=== PATIENT | male | born 1935 | race Caucasian/White ===

== ENCOUNTER 2016-07-28 17:02 | Emergency (ER) | payer MEDICARE ==
[2016-07-28] MEDS ORDERED: NORMAL SALINE 1000 ML 1,000 ML IV ONE (17:54)
[2016-07-28 18:04] LABS: ABSOLUTE EOSINOPHILS # (AUTO) 0.1 10^3/uL (0.0-0.6); ABSOLUTE LYMPHOCYTES (AUTO) 2.6 10^3/uL (0.5-4.7); ABSOLUTE MONOCYTES (AUTO) 0.5 10^3/uL (0.1-1.4); ABSOLUTE NEUT (AUTO) 3.1 10^3/uL (1.7-8.2); BASOPHILS % (AUTO) 0.6 % (0-2); EOSINOPHILS % (AUTO) 1.9 % (0-6); HEMOGLOBIN 12.9 g/dL (13.5-17.0); HGB HCT DIFFERENCE 1.7; LYMPHOCYTES % (AUTO) 41.2 % (13-45); MEAN CORPUSCULAR HEMOGLOBIN 31.2 pg (27.0-33.4); MEAN CORPUSCULAR HGB CONC 34.8 g/dL (32.0-36.0); MEAN CORPUSCULAR VOLUME 90 fl (80-97); MONOCYTES % (AUTO) 8.1 % (3-13); RED BLOOD COUNT 4.13 10^6/uL (4.35-5.55); RED CELL DISTRIBUTION WIDTH 14.2 % (11.5-14.0); SEGMENTED NEUTROPHILS % (AUTO) 48.2 % (42-78); WHITE BLOOD COUNT 6.3 10^3/uL (4.0-10.5)
--- NOTE | 2016-07-28 18:05 | ER Document Report ---
ED Cardiac - General Chief Complaint: Palpitations Stated Complaint: SHORTNESS OF BREATH Notes: The patient is an 80-year-old male, past medical history pacemaker for atrial flutter, presents with palpitations and mild shortness of breath since yesterday. He said that his heart rate is elevated. He saw his supervisor correspondence section, Dr. Trujillo, last week and his Sotolol and Diltiazem were stopped at that time. He denies any chest pain, fevers, nausea, vomiting, headache, rash, numbness, tingling or back pain. TRAVEL OUTSIDE OF THE [place] IN LAST 30 DAYS: No - Related Data Allergies/Adverse Reactions: Iodinated Contrast Media - Oral and [IV Dye, Iodine Containing] Allergy ( Verified 07/28/16 19:17) hot around ears and groin, n/v Past Medical History - General Information source: Patient - Social History Smoking Status: Unknown if Ever Smoked Family History: Other Patient has suicidal ideation: No Patient has homicidal ideation: No - Past Medical History Cardiac Medical History: Reports: Hx Atrial Fibrillation, Hx Hypercholesterolemia, Hx Hypertension Denies: Hx Congestive Heart Failure, Hx Coronary Artery Disease, Hx Heart Attack, Hx Peripheral Vascular Disease, Hx Heart Murmur Pulmonary Medical History: Reports: Hx Bronchitis, Hx Pneumonia Denies: Hx Asthma, Hx COPD, Hx Tuberculosis Neurological Medical History: Denies: Hx Cerebrovascular Accident, Hx Seizures Endocrine Medical History: Reports: Hx Diabetes Mellitus Type 2. Denies: Hx Graves' Disease, Hx Hyperthyroidism, Hx Hypothyroidism Renal/ Medical History: Denies: Hx Peritoneal Dialysis GI Medical History: Reports: Hx Gastroesophageal Reflux Disease Musculoskeltal Medical History: Reports Hx Arthritis, Denies Hx Fibromyalgia, Denies Hx Muscular Dystrophy Traumatic Medical History: Denies: Hx Fractures Past Surgical History: Reports: Hx Appendectomy, Hx Cardiac Catheterization - 2009, Hx Cardiac Surgery - pacemaker, Hx Pacemaker, Hx Tonsillectomy. Denies: Hx Bowel Surgery, Hx Cholecystectomy, Hx Coronary Artery Bypass Graft, Hx Gastric Bypass Surgery, Hx Herniorrhaphy - Immunizations Hx Diphtheria, Pertussis, Tetanus Vaccination: Yes Hx Pneumococcal Vaccination: 06/12/11 Review of Systems - Review of Systems Notes: REVIEW OF SYSTEMS: CONSTITUTIONAL: -fevers, -chills EENT: -eye pain, -difficulty swallowing, -nasal congestion CARDIOVASCULAR: -chest pain, +palpitations, -syncope. RESPIRATORY: -cough, +SOB GASTROINTESTINAL: -abdominal pain, -nausea, -vomiting, -diarrhea GENITOURINARY: -dysuria, -hematuria MUSCULOSKELETAL: -back pain, -neck pain SKIN: -rash or skin lesions. HEMATOLOGIC: -easy bruising or bleeding. LYMPHATIC: -swollen, enlarged glands. NEUROLOGICAL: -altered mental status or loss of consciousness, -headache, - neurologic symptoms PSYCHIATRIC: -anxiety, -depression. ALL OTHER SYSTEMS REVIEWED AND NEGATIVE. Physical Exam - Vital signs Vitals: Temp Pulse Resp BP Pulse Ox 98.2 F 139 H 16 164/110 H 99 07/28/16 17:29 07/28/16 17:29 07/28/16 17:29 07/28/16 17:29 07/28/16 17:29 - Notes Notes: PHYSICAL EXAMINATION: GENERAL: Well-appearing, well-nourished and in no acute distress. HEAD: Atraumatic, normocephalic. EYES: Pupils equal round and reactive to light, extraocular movements intact, sclera anicteric, conjunctiva are normal. ENT: nares patent, oropharynx clear without exudates. Moist mucous membranes. NECK: Normal range of motion, supple without lymphadenopathy LUNGS: Breath sounds clear to auscultation bilaterally and equal. No wheezes rales or rhonchi. HEART: Tachycardia, regular rhythm without murmurs ABDOMEN: Soft, nontender, normoactive bowel sounds. No guarding, no rebound. No masses appreciated. EXTREMITIES: Normal range of motion, no pitting or edema. No cyanosis. NEUROLOGICAL: Cranial nerves grossly intact. Normal speech, normal gait. Normal sensory, motor, and reflex exams. PSYCH: Normal mood, normal affect. SKIN: Warm, Dry, normal turgor, no rashes or lesions noted. Course - Re-evaluation Re-evalutation: Patient's pacemaker interrogated and it reveals multiple episodes of atrial flutter over the past several months. While in the emergency room, his heart rate improved to the 90s to low 100s without any intervention other than IV fluids. No signs of infection. Pt's diltiazem and sotolol were stopped last week by his supervisor correspondence section. 07/28/16 19:[address] Manjinder Galicia ([facility] [employer] front office assistant for Dr. Trujillo) and he recommends restarting the patient's diltiazem and sotalol and following up as an outpatient with Dr. Trujillo. Patient given his home diltiazem and sotalol while in the emergency room. Offered patient admission for further evaluation and treatment, but since he feels well, he would like to go home and follow-up as an outpatient with his supervisor correspondence section. Patient and are comfortable with plan. Given strict return precautions and they understand. He is in no respiratory distress. His heart rate remains in low 90's to low 100's. - Vital Signs Vital signs: Temp Pulse Resp BP Pulse Ox 98.2 F 139 H 25 H 139/96 H 97 07/28/16 19:01 07/28/16 17:29 07/28/16 19:01 07/28/16 19:01 07/28/16 19:01 - Laboratory Result Diagrams: 07/28/16 17:45 07/28/16 17:45 Laboratory results interpreted by me: 07/28/16 07/28/16 07/28/16 17:45 17:45 17:45 RBC 4.13 L Hgb 12.9 L Hct 37.0 L RDW 14.2 H Sodium 146.7 H Chloride 108 H BUN 23 H Glucose 125 H NT-Pro-B Natriuret Pep 1290 H - Diagnostic Test Radiology reviewed: Image reviewed, Reports reviewed Radiology results interpreted by me: CXR: NAD - EKG Interpretation by Me EKG shows normal: [place], Intervals, QRS Complexes Rate: Tachycardia When compared to previous EKG there are: Changes noted - Tachycardia, similar ST segments Discharge - Discharge Clinical Impression: Atrial flutter Qualifiers: Atrial flutter type: unspecified Qualified Code(s): I48.92 - Unspecified atrial flutter Condition: Good Disposition: HOME, SELF-CARE Additional Instructions: Take your home dose of diltiazem and sotalol because her heart rate was in the 140s today. If your heart rate is below 60, do not take the diltiazem or sotalol. You must follow-up with your supervisor correspondence section this week to recheck her symptoms. Return immediately to emergency room if you notice any chest pain, shortness of breath or any other concerns. Palpitations (Irregular/Rapid Heartrate) Irregular or rapid heartbeat is called "palpitation." To diagnose the cause of palpitation, we have to "catch it in the act" with an EKG. Sinus Tachycardia: This is a rapid (but NORMAL) rhythm that can be due to fever, pain, anxiety, lack of sleep, over-exertion, or drugs. Cold medications, caffeine, and diet pills are particularly likely to cause tachycardia. Usually , all that's required is rest, reassurance, and avoiding caffeine, alcohol, nicotine, and unnecessary medicines. Paroxysmal Atrial Tachycardia (PAT): This abnormally rapid heartbeat is caused by a "short circuit" in the electrical system of the heart. It is not dangerous, unless other heart disease is present. These attacks of PAT may occur occasionally for years. Medication is available for treatment. Paroxysmal Atrial Fibrillation or Atrial Flutter: This is irregular electrical activity in the upper heart chamber. These abnormal rhythms often occur with valve disease or in hearts damaged by hardening of the arteries. These rhythms usually require further testing, for example a cardiac echo. Premature Beats: Extra beats occur more commonly after caffeine, nicotine , alcohol, cold pills, diet pills. Emotional stress or fatigue also provoke them. Extra beats are only dangerous when heart disease is present. They usually need no treatment. If they're frequent, or if evidence of heart disease develops, medication can be given to suppress them. If we were unable to "catch" the palpitations on EKG, you should try to get an EKG immediately if the symptoms begin again. Contact the physician at once if you develop persistent lightheadedness, shortness of breath, chest pain , or swelling of the ankles. Referrals: URI TRUJILLO MD [[facility]ERCE] - Follow up as needed
[2016-07-28 18:20] LABS: PROTHROMBIN TIME 14.4 SEC (11.4-15.4)
[2016-07-28 18:21] LABS: PARTIAL THROMBOPLASTIN TIME 28.7 SEC (23.5-35.8)
[2016-07-28 18:25] LABS: ALANINE AMINOTRANSFERASE 27 U/L (21-72); ALBUMIN 4.7 g/dL (3.5-5.0); ALKALINE PHOSPHATASE 39 U/L (38-126); ANION GAP 15 (5-19); ASPARTATE AMINO TRANSFERASE 35 U/L (17-59); BILIRUBIN,DIRECT 0.2 mg/dL (0.0-0.4); BILIRUBIN,TOTAL 0.4 mg/dL (0.2-1.3); BLOOD UREA NITROGEN 23 mg/dL (7-20); CALCIUM 9.8 mg/dL (8.4-10.2); CARBON DIOXIDE 24 mmol/L (22-30); CHLORIDE 108 mmol/L (98-107); CREATINE KINASE 96 U/L (55-170); CREATININE RESULT 1.13 mg/dL (0.52-1.25); GLUCOSE 125 mg/dL (75-110); POTASSIUM 4.1 mmol/L (3.6-5.0); SODIUM 146.7 mmol/L (137-145); TOTAL PROTEIN 7.7 g/dL (6.3-8.2)
[2016-07-28 18:37] LABS: TROPONIN I 0.014 ng/mL
--- NOTE | 2016-07-28 19:37 | EKG REPORT ---
SEVERITY:- ABNORMAL ECG - SINUS OR ECTOPIC ATRIAL TACHYCARDIA BORDERLINE LEFT AXIS DEVIATION CONSIDER POSTERIOR INFARCT REPOLARIZATION ABNORMALITY, PROB RATE RELATED : Confirmed by: Afshan Saeed MD 28-Jul-2016 19:36:50
[2016-07-28 20:34] VITALS: BP 145/88
== END 2016-07-28 20:35 | disposition home or self-care (01) ==
LOC: ER 17:02
DX: I48.92 Unspecified atrial flutter (principal); R06.02 Shortness of breath; R00.0 Tachycardia, unspecified; I10 Essential (primary) hypertension; E11.9 Type 2 diabetes mellitus without complications; Z91.041 Radiographic dye allergy status; Z95.0 Presence of cardiac pacemaker
CPT/HCPCS: 93005; 99285; 36415; 82550; 85025; 85610; 85730; 80076; 80048; 84484; 83880; 71010; 93010; J7030

== ENCOUNTER → 2017-07-08 | Outpatient (CLI) | payer MEDICARE ==
--- NOTE | 2017-07-08 15:46 | RADIOLOGY REPORT (SQ) ---
EXAM DESCRIPTION: U/S RETROPERITON (RENAL/AORTA) COMPLETED DATE/TIME: 07/08/2017 2:47 pm REASON FOR STUDY: HEMATURIA R31.9 HEMATURIA, UNSPECIFIED COMPARISON: None. TECHNIQUE: Dynamic and static grayscale images acquired of the kidneys and bladder and recorded on P ACS. Additional selected color Doppler and spectral images recorded. LIMITATIONS: None. FINDINGS: RIGHT KIDNEY: Normal size. Normal echogenicity. No solid or suspicious masses. No hydronep hrosis. No calcifications. LEFT KIDNEY: Normal size. Normal echogenicity. 1 cm cyst. No solid or suspicious masses. No hydron ephrosis. No calcifications. BLADDER: No masses. OTHER FINDINGS: No other significant finding. IMPRESSION: 1 CM CYST IN THE LEFT KIDNEY. OTHERWISE UNREMARKABLE RENAL AND BLADDER ULTRASOUND. TECHNICAL DOCUMENTATION: JOB ID: [id number] [employer]- All Rights Reserved Reading location - IP/workstation name: [email or web address]
== END ==
LOC: RAD 13:45
PROVIDERS: ATTEND Family Medicine
DX: R31.9 Hematuria, unspecified (principal); N28.1 Cyst of kidney, acquired
CPT/HCPCS: 76770

== ENCOUNTER → 2017-09-22 | Outpatient (CLI) | payer MEDICARE | LOC: HHS 09:09 | DX: Z12.83 Encounter for screening for malignant neoplasm of skin (principal) ==

== ENCOUNTER 2018-03-31 07:00 | Day surgery (SDC) | payer OTHER, MEDICARE ==
[~2018-03-31 07:00] MED LIST: KETOROLAC TROMETHAMINE 0.45% 4 DROP/0.4 ML DROPERETTE OD PRN
[2018-03-31] MEDS ORDERED: MIDAZOLAM 2 MG/2 ML INJ ONE (07:22)
[2018-03-31] MEDS ORDERED: EPINEPHRINE INJ/PF 1 MG/1 ML AMPULE ONE (07:25)
[2018-03-31] MEDS ORDERED: LIDOCAINE 1% INJ-PF (10 MG/ML) 30 ML SDV ONE (07:25)
[2018-03-31] MEDS ORDERED: CHONDR SU A NA/HYALUR INTRAOC KIT (SURGICARE) ONE (07:26)
[2018-03-31] MEDS ORDERED: LIDOCAINE 1%/PHENYLEPHRINE 1.5% 1 ML VIAL ONE (07:45)
[2018-03-31] MEDS: BESIFLOXACIN HCL 0.6% OPH SUSP 5 ML BOTTLE OD PRN ×4 (07:55→08:48)
[2018-03-31] MEDS: TETRACAINE HCL 0.5% OPH SOLN 4 ML OD PRN ×3 (07:55→08:28)
[2018-03-31] MEDS: CYCLOPENTOLATE 0.2%/PHENYLEPHRINE 1% OPH SOLN 2 ML OD PRN ×3 (07:55→08:15)
[2018-03-31] MEDS: TROPICAMIDE 1% OPH SOLN 3 ML OD PRN ×3 (07:55→08:15)
--- NOTE | 2018-04-01 18:57 | [facility] OPERATIVE REPORT E ---
[facility] NAME: RSOITA GORVES AGE: 82Y DATE OF SURGERY: 03/31/2018 ROOM: PREOPERATIVE DIAGNOSES: 1. CATARACT, RIGHT EYE. 2. PUPIL MIOSIS, RIGHT EYE. POSTOPERATIVE DIAGNOSES: 1. CATARACT, RIGHT EYE. 2. PUPIL MIOSIS, RIGHT EYE. OPERATION: Complex cataract extraction with the use of a Malyugin ring due to pupillary miosis where the pupil measured to be less than 4 mm. SURGEON: AIDAN RUBIO M.D. ANESTHESIA: TOPICAL. COMPLICATIONS: None. ESTIMATED BLOOD LOSS: None. PROCEDURE: After obtaining appropriate consent, the patient right eye was prepped and draped in sterile fashion as well as the surgeon in a sterile manner, and the cataract surgery was started. First, the paracentesis blade was used to make a small side-port incision. Viscoelastic was used to inflate the anterior chamber. Next a 2.4 mm incision was made using a 2.4 mm keratome. At this point, the pupil was less than 4.5 mm and was very miotic. In order to complete the capsulorhexis, a Malyugin ring was inserted and found to be in excellent position to help stabilize the pupil. Following this, a continuous capsulorhexis was made using a cystitome and Utrata forceps. Following this, hydrodissection was carried out to make the lens fully loose and mobile, and it was rotated 90 degrees. Following this, a divide and conquer technique was used to phacoemulsify the lens with a CDE of approximately 10.48. The remaining cortex was removed with irrigation/aspiration. Provisc was instilled into the capsular bag to inflate the bag. A SN60WF lens of 18.0 diopters was placed. The remaining viscoelastic material was removed with irrigation/aspiration. After this the Malyugin ring was removed. Following this, the incision was found to be watertight. Besivance was instilled into the eye and a protective shield was placed over the eye. The patient returned to the postoperative recovery in stable condition. This was a complex case due to the fact that the Malyugin ring was used due to poor pupillary dilation of less than or equal to 4 mm. Prior to making the capsulorrhexis, a Malyugin ring was inserted due to poor pupillary dilation. This was removed at the end of the case. DICTATING PHYSICIAN: AIDAN RUBIO M.D. [id number] PHY#: [id number] ID: [id number] JOB#: [id number] ACCT: [id number] cc:AIDAN RUBIO M.D. >
--- NOTE | 2018-04-01 19:02 | [facility] DISCHARGE SUMMARY E ---
[facility] Discharge Summary NAME: ROSITA GROVES AGE: 82Y ADMITTED: 03/31/2018 DISCHARGED: 03/31/2018 FINAL DIAGNOSES: 1. Cataract, right eye. 2. Pupil miosis. HOSPITAL COURSE: This is an 82-year-old male who underwent cataract extraction, complex, with the use of Malyugin ring due to poor pupillary dilation. Patient underwent surgery because he was having increased glare with headlights at night and difficulty seeing words on the television. DISCHARGE INSTRUCTIONS: He should be on a regular diet. No bending at his waist, no heavy lifting. He should use Pred Forte, ketorolac and Vigamox at 3:00 p.m. and 8:00 p.m. Sleep with a rigid shield. I will see him for a 1-day postoperative tomorrow. DICTATING PHYSICIAN: AIDAN RUBIO M.D. [id number] PHY#: [id number] ID: [id number] JOB#: [id number] ACCT: [id number] cc:AIDAN RUBIO M.D. >
== END 2018-03-31 09:39 | disposition home or self-care (01) ==
LOC: SC 07:00
PROVIDERS: ATTEND Internal Medicine
DX: H25.13 Age-related nuclear cataract, bilateral (principal); H57.03 Miosis; E11.9 Type 2 diabetes mellitus without complications; I10 Essential (primary) hypertension; E78.00 Pure hypercholesterolemia, unspecified; R01.1 Cardiac murmur, unspecified; D64.9 Anemia, unspecified; I49.9 Cardiac arrhythmia, unspecified; Z79.899 Other long term (current) drug therapy; Z87.891 Personal history of nicotine dependence; Z79.84 Long term (current) use of oral hypoglycemic drugs; Z79.82 Long term (current) use of aspirin; Z91.041 Radiographic dye allergy status; Z79.01 Long term (current) use of anticoagulants; Z95.0 Presence of cardiac pacemaker
CPT/HCPCS: 66982; 82962; V2632; J2250; J3490 ×2; J0171; J2370; 142

== ENCOUNTER 2018-04-28 07:38 | Day surgery (SDC) | payer OTHER, MEDICARE ==
[~2018-04-28 07:38] MED LIST changes: -KETOROLAC TROMETHAMINE 0.45% 4 DROP/0.4 ML DROPERETTE OD PRN; +KETOROLAC TROMETHAMINE 0.45% 4 DROP/0.4 ML DROPERETTE OS PRN
[2018-04-28] MEDS ORDERED: EPINEPHRINE INJ/PF 1 MG/1 ML AMPULE ONE (07:53)
[2018-04-28] MEDS ORDERED: LIDOCAINE 1% INJ-PF (10 MG/ML) 30 ML SDV ONE (07:53)
[2018-04-28] MEDS ORDERED: CHONDR SU A NA/HYALUR INTRAOC KIT (SURGICARE) ONE (07:54)
[2018-04-28] MEDS ORDERED: LIDOCAINE 1%/PHENYLEPHRINE 1.5% 1 ML VIAL ONE (07:55)
[2018-04-28] MEDS ORDERED: MIDAZOLAM 2 MG/2 ML INJ ONE (08:02)
[2018-04-28] MEDS: TETRACAINE HCL 0.5% OPH SOLN 4 ML OS PRN ×3 (08:40→09:18)
[2018-04-28] MEDS: CYCLOPENTOLATE 0.2%/PHENYLEPHRINE 1% OPH SOLN 2 ML OS PRN ×3 (08:40→09:00)
[2018-04-28] MEDS: TROPICAMIDE 1% OPH SOLN 3 ML OS PRN ×3 (08:40→09:00)
[2018-04-28] MEDS: BESIFLOXACIN HCL 0.6% OPH SUSP 5 ML BOTTLE OS PRN ×4 (08:41→09:40)
--- NOTE | 2018-04-28 22:22 | [facility] DISCHARGE SUMMARY E ---
[facility] Discharge Summary NAME: ROSITA GROVES AGE: 82Y ADMITTED: 04/28/2018 DISCHARGED: 04/28/2018 HOSPITAL COURSE: This is an 82-year-old who underwent complex cataract extraction of the left eye with use of a Malyugin ring due to pupil miosis. DIAGNOSES: 1. CATARACT, LEFT EYE. 2. PUPIL MIOSIS OF THE LEFT EYE. He underwent surgery because he was having difficulty with nighttime driving and feeling an imbalance between both eyes. DISCHARGE INSTRUCTIONS: He should be on a regular diet. No bending at his waist, no heavy lifting. He should use his Vigamox, Ketorolac, and Predforte at 3 p.m. and 8 p.m. and sleep with a rigid shield. I will see him for his 1 day postoperative tomorrow. DICTATING PHYSICIAN: AIDAN RUBIO M.D. [id number] PHY#: [id number] ID: [id number] JOB#: [id number] ACCT: [id number] cc:AIADN RUBIO M.D. >
--- NOTE | 2018-04-28 22:22 | [facility] OPERATIVE REPORT E ---
[facility] Operative Report NAME: ROSITA GROVES AGE: 82Y DATE OF SURGERY: 04/28/2018 ROOM: PREOPERATIVE DIAGNOSES: 1. CATARACT LEFT EYE. 2. PUPIL MIOSIS OF THE LEFT EYE LESS THAN 4 MM. POSTOPERATIVE DIAGNOSES: 1. CATARACT LEFT EYE. 2. PUPIL MIOSIS OF THE LEFT EYE LESS THAN 4 MM. OPERATION: Complex cataract extraction with the use of a Malyugin ring due to poor pupillary dilation. SURGEON: AIDAN RUBIO M.D. ANESTHESIA: TOPICAL. COMPLICATIONS: None. ESTIMATED BLOOD LOSS: None. PROCEDURE: After obtaining appropriate consent, the patient left eye was prepped and draped in sterile fashion as well as the surgeon in a sterile manner, and the cataract surgery was started. First, the paracentesis blade was used to make a small side-port incision. Viscoelastic was used to inflate the anterior chamber. Next a 2.4 mm incision was made using a 2.4 mm keratome. At this point, the pupil was less than 4.5 mm and was very miotic. In order to complete the capsulorhexis, a Malyugin ring was inserted and found to be in excellent position to help stabilize the pupil. Following this, a continuous capsulorhexis was made using a cystitome and Utrata forceps. Following this, hydrodissection was carried out to make the lens fully loose and mobile, and it was rotated 90 degrees. Following this, a divide and conquer technique was used to phacoemulsify the lens with a CDE of 12.98. The remaining cortex was removed with irrigation/aspiration. Provisc was instilled into the capsular bag to inflate the bag. A SN60WF lens of 18.5 diopters was placed. The remaining viscoelastic material was removed with irrigation/aspiration. After this the Malyugin ring was removed. Following this, the incision was found to be watertight. Besivance was instilled into the eye and a protective shield was placed over the eye. The patient returned to the postoperative recovery in stable condition. This was a complex case due to the fact that the Malyugin ring was used due to poor pupillary dilation of less than or equal to 4 mm. Prior to making the capsulorhexis a Malyugin ring was inserted due to poor pupillary dilation. This was removed at the end of the case. DICTATING PHYSICIAN: AIDAN RUBIO M.D. [id number] PHY#: [id number] ID: [id number] JOB#: [id number] ACCT: [id number] cc:AIDAN RUBIO M.D. >
== END 2018-04-28 10:21 | disposition home or self-care (01) ==
LOC: SC 07:38
PROVIDERS: ATTEND Internal Medicine
DX: H25.12 Age-related nuclear cataract, left eye (principal); H57.03 Miosis; Z96.1 Presence of intraocular lens; I10 Essential (primary) hypertension; I48.91 Unspecified atrial fibrillation; E11.9 Type 2 diabetes mellitus without complications; D64.9 Anemia, unspecified; K21.9 Gastro-esophageal reflux disease without esophagitis; Z79.84 Long term (current) use of oral hypoglycemic drugs; Z79.899 Other long term (current) drug therapy; Z79.01 Long term (current) use of anticoagulants; Z79.82 Long term (current) use of aspirin
CPT/HCPCS: 66982; 82962; V2632; J2250; J3490 ×2; J0171; J2370; 142

== ENCOUNTER 2018-08-17 08:11 | Day surgery (SDC) | payer MEDICARE, OTHER ==
[~2018-08-17 08:11] MED LIST changes: +DIPHENHYDRAMINE HCL 50 MG/ML VIAL ONE; +EPINEPHRINE INJ 1 MG/10 ML DISP.SYRIN ONE; +FENTANYL CITRATE INJ/PF 100 MCG/2 ML AMPUL ONE; +FLUMAZENIL INJ 0.5 MG/5 ML VIAL ONE; +GLUCAGON,HUMAN RECOMB 1 MG INJ ONE; -KETOROLAC TROMETHAMINE 0.45% 4 DROP/0.4 ML DROPERETTE OS PRN; +NALOXONE HCL INJ/PF 0.4 MG/1 ML SDV ONE; +ONDANSETRON HCL INJ/PF 4 MG/2 ML SDV ONE
[2018-08-17] MEDS: MIDAZOLAM 2 MG/2 ML INJ ONE ×2 (08:21→08:25)
--- NOTE | 2018-08-17 08:35 | Operative Report ---
Operative Report DATE OF SURGERY: 08/17/18 Operative Report: The risks benefits and alternatives of the procedure explained to the patient in detail and informed consent is obtained.A GIF Olympus video scope was inserted into the patient's mouth and hypopharynx, the esophagus is identified intubated and insufflated, the scope was then advanced through the esophagus stomach and duodenum, retroflexion maneuver is done, the esophagus stomach and first and second portions of the duodenum examined. PREOPERATIVE DIAGNOSIS: Epigastric pain rule out peptic ulcer disease. Patient had a previous ENT evaluation POSTOPERATIVE DIAGNOSIS: Gastritis status post biopsy for Helicobacter pylori. Hiatal hernia. Schatzki's ring status post breakage. Esophagitis versus Brizuela's sent for biopsy OPERATION: EGD with biopsy SURGEON: RENETTA STORY ANESTHESIA: Moderate Sedation - 3 mg of Versed, 4 mg of Zofran TISSUE REMOVED OR ALTERED: As noted above. COMPLICATIONS: None. ESTIMATED BLOOD LOSS: None. INTRAOPERATIVE FINDINGS: As noted above. PROCEDURE: Patient tolerated the procedure well. No immediate postprocedure complications are noted. Patient discharged in good condition. Discharge date 08/17/2018. Discharge diet: Regular. Discharge activity: Regular. 2 to 3-week follow-up to discuss findings. Patient is instructed call the office or proceed to the emergency room should there be any further questions. Wait on the pathology.
[2018-08-17 09:39] VITALS: BP 125/67
== END 2018-08-17 09:43 | disposition home or self-care (01) ==
LOC: END 08:11
PROVIDERS: ATTEND Internal Medicine Gastroenterology
DX: K29.50 Unspecified chronic gastritis without bleeding (principal); K44.9 Diaphragmatic hernia without obstruction or gangrene; K22.2 Esophageal obstruction; E11.9 Type 2 diabetes mellitus without complications; E78.5 Hyperlipidemia, unspecified; I48.91 Unspecified atrial fibrillation; Z95.0 Presence of cardiac pacemaker; Z79.84 Long term (current) use of oral hypoglycemic drugs; Z79.899 Other long term (current) drug therapy; Z79.01 Long term (current) use of anticoagulants; Z79.82 Long term (current) use of aspirin
CPT/HCPCS: 43239; 82962; 88305 ×2; J2250; J2405; J0171; J1200; J1610; J2310; J3010; J3490

== ENCOUNTER 2018-11-12 10:47 | Emergency (ER) | payer MEDICARE ==
--- NOTE | 2018-11-12 11:56 | ER Document Report ---
ED Medical Screen (RME) - General Chief Complaint: Dizziness Stated Complaint: DIZZINESS,HEADACHE Time Seen by Provider: 11/12/18 11:41 Primary Care Provider: GUADALUPE GRIFFIN MD [Primary Care Provider] - Follow up as needed Mode of Arrival: Ambulatory Information source: Patient Notes: This 83-year-old male presents to the emergency department with multiple complaints. He reports he has been dizzy with shortness of breath with a sore throat for over 6 months. He is here mainly today for the dizziness. He reports sometimes he becomes so dizziness he has to hang onto the soriano. He reports 90% of the time he is dizzy. He reports he has been evaluated by multiple physicians to include GI and ENT. He has had a EGD done. Nobody has addressed his sore throat. His medications have been changed around they may be responsible for his dizziness. Patient does have a history of diabetes pacemaker. No recent symptoms such as fever vomiting nausea diarrhea. Is speaking in a clear voice no obvious neuro deficits. Reports he swallows okay but his throat hurts. I have greeted and performed a rapid initial assessment of this patient. A comprehensive ED assessment and evaluation of the patient, analysis of test results and completion of the medical decision making process will be conducted by additional ED providers. Dictation of this chart was performed using voice recognition software; therefore, there may be some unintended grammatical errors. TRAVEL OUTSIDE OF THE [place] IN LAST 30 DAYS: No - Related Data Allergies/Adverse Reactions: No Known Allergies Allergy (Verified 08/16/18 14:44) Past Medical History - Past Medical History Cardiac Medical History: Reports: Hx Atrial Fibrillation, Hx Hypercholesterolemia, Hx Hypertension Denies: Hx Congestive Heart Failure, Hx Coronary Artery Disease, Hx Heart A ttack, Hx Peripheral Vascular Disease, Hx Heart Murmur Pulmonary Medical History: Reports: Hx Pneumonia Denies: Hx Asthma, Hx Bronchitis, Hx COPD, Hx Tuberculosis Neurological Medical History: Denies: Hx Cerebrovascular Accident, Hx Seizures Endocrine Medical History: Reports: Hx Diabetes Mellitus Type 2. Denies: Hx Graves' Disease, Hx Hyperthyroidism, Hx Hypothyroidism Renal/ Medical History: Denies: Hx Peritoneal Dialysis GI Medical History: Reports: Hx Gastroesophageal Reflux Disease. Denies: Hx Hepatitis, Hx Hiatal Hernia, Hx Ulcer Musculoskeltal Medical History: Reports Hx Arthritis, Denies Hx Fibromyalgia, Denies Hx Muscular Dystrophy, Denies Hx Systemic Lupus Erythematosus Traumatic Medical History: Denies: Hx Fractures Infectious Medical History: Denies: Hx Hepatitis Past Surgical History: Reports: Hx Appendectomy, Hx Cardiac Catheterization - 2010, Hx Cardiac Surgery - pacemaker, Hx Pacemaker, Hx Tonsillectomy. Denies: Hx Bowel Surgery, Hx Cholecystectomy, Hx Coronary Artery Bypass Graft, Hx Gastric Bypass Surgery, Hx Herniorrhaphy, Hx Open Heart Surgery - Immunizations Hx Diphtheria, Pertussis, Tetanus Vaccination: Yes Influenza Administration Date for 01/2017 - 06/2017 Season: 01/10/18 Physical Exam - Vital signs Vitals: Temp Pulse Resp BP Pulse Ox 98.3 F 70 18 141/55 H 97 11/12/18 10:54 11/12/18 10:54 11/12/18 10:54 11/12/18 10:54 11/12/18 10:54 Course - Vital Signs Vital signs: Temp Pulse Resp BP Pulse Ox 98.3 F 70 18 141/55 H 97 11/12/18 10:54 11/12/18 10:54 11/12/18 10:54 11/12/18 10:54 11/12/18 10:54 Doctor's Discharge - Discharge Referrals: GUADALUPE GRIFFIN MD [Primary Care Provider] - Follow up as needed
[2018-11-12 12:59] LABS: ABSOLUTE EOSINOPHILS # (AUTO) 0.1 10^3/uL (0.0-0.6); ABSOLUTE MONOCYTES (AUTO) 0.3 10^3/uL (0.1-1.4); ABSOLUTE NEUT (AUTO) 2.6 10^3/uL (1.7-8.2); BASOPHILS % (AUTO) 0.6 % (0-2); EOSINOPHILS % (AUTO) 1.4 % (0-6); HEMATOCRIT 38.6 % (37.9-51.0); HEMOGLOBIN 13.1 g/dL (13.5-17.0); MEAN CORPUSCULAR HEMOGLOBIN 31.7 pg (27.0-33.4); MEAN CORPUSCULAR HGB CONC 33.8 g/dL (32.0-36.0); MEAN CORPUSCULAR VOLUME 94 fl (80-97); MONOCYTES % (AUTO) 6.7 % (3-13); PLATELET COUNT 221 10^3/uL (150-450); RED BLOOD COUNT 4.12 10^6/uL (4.35-5.55); RED CELL DISTRIBUTION WIDTH 13.1 % (11.5-14.0); SEGMENTED NEUTROPHILS % (AUTO) 51.3 % (42-78); TOTAL CELLS COUNTED % (AUTO) 100 %; WHITE BLOOD COUNT 5.1 10^3/uL (4.0-10.5)
[2018-11-12 13:16] LABS: ALBUMIN 4.4 g/dL (3.5-5.0); ALKALINE PHOSPHATASE 42 U/L (38-126); ANION GAP 10 (5-19); ASPARTATE AMINO TRANSFERASE 46 U/L (17-59); BILIRUBIN,DIRECT 0.3 mg/dL (0.0-0.4); BILIRUBIN,TOTAL 0.6 mg/dL (0.2-1.3); BLOOD UREA NITROGEN 26 mg/dL (7-20); CALCIUM 9.4 mg/dL (8.4-10.2); CARBON DIOXIDE 26 mmol/L (22-30); CHLORIDE 104 mmol/L (98-107); CREATINE KINASE 51 U/L (55-170); GLUCOSE 278 mg/dL (75-110); POTASSIUM 4.6 mmol/L (3.6-5.0); TOTAL PROTEIN 7.4 g/dL (6.3-8.2)
[2018-11-12 13:34] LABS: APPEARANCE,URINE CLEAR; BILIRUBIN,URINE NEGATIVE (NEGATIVE); COLOR,URINE YELLOW; GLUCOSE, URINE >=500 mg/dL (NEGATIVE); KETONES,URINE NEGATIVE (NEGATIVE); LEUKOCYTE ESTERASE,URINE NEGATIVE (NEGATIVE); NITRITE,URINE NEGATIVE (NEGATIVE); PROTEIN,URINE NEGATIVE (NEGATIVE); URINE SPECIFIC GRAVITY 1.016; UROBILINOGEN,URINE NEGATIVE mg/dL (<2.0)
--- NOTE | 2018-11-12 14:09 | ER Document Report ---
ED General - General Mode of Arrival: Ambulatory TRAVEL OUTSIDE OF THE [place] IN LAST 30 DAYS: No <FITO DE LUNA - Last Filed: 11/12/18 20:13> <KAYLA CASTRO - Last Filed: 11/13/18 06:30> - General Chief Complaint: Dizziness Stated Complaint: DIZZINESS,HEADACHE Time Seen by Provider: 11/12/18 11:41 Primary Care Provider: RILEY VOSS DO [ASSOCIATE] - 11/14/18 - [facility] Notes: 83-year-old male with history of pacemaker, arrhythmia to the emergency department with complaints of dizziness for the past 2 months that has gotten acutely worse in the past 3 to 4 days with associated "sore throat ". He states that he is dizzy every single day and for the most part it would get worse with different positions. However in the past 3 to 4 days his dizziness has been constant and he has had difficulty walking, operating a vehicle, doing his normal daily life activities. He states that when he tries to get up and ambulate he requires the use of a wall to help him stand up and not fall. He states that he has a feeling like he is spinning and when the dizziness gets worse he sees double of people and things. He also reports his vague sore throat for the past 6 months. He states that it feels like something is getting caught and he has phlegm in his throat all the time. States that occasionally he will also have difficulty with swallowing. He states that he will accidentally inhale food particles instead of having them go down his esophagus. He reports that this has become a more frequent thing lately. He denies shortness of breath, chest pain. He denies any urinary complaints. He denies abdominal pain, vomiting. He admits to some nausea. He states that he seen both an ENT and GI specialist for his sore throat but really has not found a reason for it nor has anyone truly addressed his dizziness. He states that he is never had a head CT since the dizziness started. He has a [employer] pacemaker that was implanted in 2011. (FITO DE LUNA) - Related Data Allergies/Adverse Reactions: No Known Allergies Allergy (Verified 08/16/18 14:44) Past Medical History - General Information source: Patient - Social History Smoking Status: Never Smoker Frequency of alcohol use: None Drug Abuse: None Family History: Reviewed & Not Pertinent, Other Patient has suicidal ideation: No Patient has homicidal ideation: No - Past Medical History Cardiac Medical History: Reports: Hx Atrial Fibrillation, Hx Hypercholesterolemia, Hx Hypertension Denies: Hx Congestive Heart Failure, Hx Coronary Artery Disease, Hx Heart Attack, Hx Peripheral Vascular Disease, Hx Heart Murmur Pulmonary Medical History: Reports: Hx Pneumonia Denies: Hx Asthma, Hx Bronchitis, Hx COPD, Hx Tuberculosis Neurological Medical History: Denies: Hx Cerebrovascular Accident, Hx Seizures Endocrine Medical History: Reports: Hx Diabetes Mellitus Type 2. Denies: Hx Graves' Disease, Hx Hyperthyroidism, Hx Hypothyroidism Renal/ Medical History: Denies: Hx Peritoneal Dialysis GI Medical History: Reports: Hx Gastroesophageal Reflux Disease. Denies: Hx Hepatitis, Hx Hiatal Hernia, Hx Ulcer Musculoskeletal Medical History: Reports Hx Arthritis, Denies Hx Fibromyalgia, Denies Hx Muscular Dystrophy, Denies Hx Systemic Lupus Erythematosus Traumatic Medical History: Denies: Hx Fractures Infectious Medical History: Denies: Hx Hepatitis Past Surgical History: Reports: Hx Appendectomy, Hx Cardiac Catheterization - 2010, Hx Cardiac Surgery - pacemaker, Hx Pacemaker, Hx Tonsillectomy. Denies: Hx Bowel Surgery, Hx Cholecystectomy, Hx Coronary Artery Bypass Graft, Hx Gastric Bypass Surgery, Hx Herniorrhaphy, Hx Open Heart Surgery - Immunizations Hx Diphtheria, Pertussis, Tetanus Vaccination: Yes Hx Pneumococcal Vaccination: 06/12/11 <FITO DE LUNA - Last Filed: 11/12/18 20:13> Review of Systems - Review of Systems Constitutional: No symptoms reported. denies: Chills, Fever EENT: See HPI, Throat pain, Difficulty swallowing Cardiovascular: Dizziness. denies: Chest pain, Palpitations, Dyspnea, Syncope, Lightheaded Respiratory: Short of breath. denies: Cough Gastrointestinal: See HPI, Nausea. denies: Abdominal pain, Diarrhea, Vomiting Genitourinary: denies: Frequency, Hematuria, Incontinence Musculoskeletal: No symptoms reported Skin: No symptoms reported Neurological/Psychological: No symptoms reported -: Yes All other systems reviewed and negative <FITO DE LUNA - Last Filed: 11/12/18 20:13> Physical Exam - Vital signs Interpretation: Hypertensive - General General appearance: Appears well, Alert In distress: None - HEENT Head: Normocephalic, Atraumatic Eyes: Normal Pupils: PERRL Ears: Normal External canal: Normal Tympanic membrane: Normal Sinus: Normal Nasal: Normal Mouth/Lips: No: Angioedema, Lesions Mucous membranes: Normal Pharynx: Normal. No: Erythema, Exudate, Peritonsillar abscess, Retropharyngeal abscess, Tonsillar hypertrophy, Uvular edema, Potential airway comprom. Neck: Normal - Respiratory Respiratory status: No respiratory distress Chest status: Nontender Breath sounds: Normal Chest palpation: Normal - Cardiovascular Rhythm: Regular Heart sounds: Normal auscultation Murmur: No - Abdominal Inspection: Normal Distension: No distension Bowel sounds: Normal Tenderness: Nontender Organomegaly: No organomegaly - Extremities General upper extremity: Normal inspection, Nontender General lower extremity: Normal inspection, Nontender - Neurological Neuro grossly intact: Yes Cognition: Normal Orientation: AAOx4 [place] Coma Scale Eye Opening: Spontaneous Ole Coma Scale Verbal: Oriented Ole Coma Scale Motor: Obeys Commands Ole Coma Scale Total: 15 Speech: Normal Cranial nerves: Normal. No: Facial palsy, Forehead sparing, Gaze palsy, Sensory deficit, Tongue deviation Cerebellar coordination: Gait ataxia - She has difficulty ambulating and hold on to the soriano to help balance him, Heel-buenrostro - Gzhk-ui-vwbr bilaterally Additional motor exam normals: Equal bilingual medical assistant. No: Pronator drift <FITO DE LUNA - Last Filed: 11/12/18 20:13> - Vital signs Vitals: Temp Pulse Resp BP Pulse Ox 98.3 F 70 18 141/55 H 97 11/12/18 10:54 11/12/18 10:54 11/12/18 10:54 11/12/18 10:54 11/12/18 10:54 - Neurological Notes: Performed [place]-Hallpike on patient. He does get acutely dizzy when laid down quickly and head is turned to the side. It is noted that he has nystagmus as well. He tells me that he can see two of me. (FITO DE LUNA) Course - Laboratory Result Diagrams: 11/12/18 12:24 11/12/18 12:24 - Diagnostic Test Radiology reviewed: Image reviewed, Reports reviewed - EKG Interpretation by Me EKG shows normal: Sinus rhythm Rate: Normal When compared to previous EKG there are: No significant change <FITO DE LUNA - Last Filed: 11/12/18 20:13> - Laboratory Result Diagrams: 11/12/18 12:24 11/12/18 12:24 <KAYLA CASTRO - Last Filed: 11/13/18 06:30> - Re-evaluation Re-evalutation: Discussed case with Dr. Matta multiple times. We agree that patient's dizziness is concerning in that it got significantly worse over the past three days and now can't walk without holding onto to soriano and stable furniture. Will obtain CTA head and neck as patient's pacemaker is not MRI compatible. 11/12/18 20:13 Turned patient over to [facility] awaiting CTAs. We rounded on the patient together. If CTAs are positive for posterior circulation vascular disease will plan on transfer. If negative, will see if dizziness is controlled. If not controlled, will admit here. Patient and agree with the plan. (FITO DE LUNA) 11/12/[address] of the neck and head had a suboptimal contrast bolus timing. There is no specific abnormal finding although possibly of the left posterior artery. This is thought to be more likely contrast bolus timing error per the read. Patient was given meclizine and 5 mg p.o. Valium in addition to his other medications, he also has the scopolamine patch on. I discussed with Dr. Bartholomew. She does not recommend repeat imaging especially if the patient has symptom improvement. I did discuss the imaging with the patient, he states he definitely does not want to be reimaged if at all possible. When I reevaluated him now he is able to look up without getting di zzy, I asked him to get up and ambulate, he did so easily and he ambulated to the door, pivoted, and came back without any instability. Patient states that he actually feels much improved. He is smiling, talkative, well-appearing. Because of his improvement with medications I have a low suspicion of an intracranial abnormality causing his symptoms. He is requesting discharge, states he will follow-up with ENT Dr. Voss, he states he will return if he worsens. This was discussed with patient and family at bedside. (KAYLA CASTRO) - Vital Signs Vital signs: Temp Pulse Resp BP Pulse Ox 98.3 F 70 16 154/82 H 98 11/12/18 10:54 08/03/19 15:14 11/12/18 18:00 11/12/18 18:01 11/12/18 18:01 - Laboratory Laboratory results interpreted by me: 11/12/18 11/12/18 11/12/18 12:24 12:24 12:24 RBC 4.12 L Hgb 13.1 L BUN 26 H Est GFR (Non-Af Amer) 57 L Glucose 278 H Creatine Kinase 51 L NT-Pro-B Natriuret Pep 921 H Urine Glucose (UA) Urine Blood 11/12/18 13:17 RBC Hgb BUN Est GFR (Non-Af Amer) Glucose Creatine Kinase NT-Pro-B Natriuret Pep Urine Glucose (UA) >=500 H Urine Blood SMALL H - EKG Interpretation by Me Additional EKG results interpreted by me: 11/12/18 No STEMI, no t wave changes, noted paced rhythm. (FITO DE LUNA) Discharge <FITO DE LUNA - Last Filed: 11/12/18 20:13> <KAYLA CASTRO - Last Filed: 11/13/18 06:30> - Discharge Clinical Impression: Dizziness, Vertigo Condition: Stable Disposition: HOME, SELF-CARE Additional Instructions: The CAT scan imaging does not show any definite concerning findings. Your general work-up is reassuring. I recommend the Antivert daily as prescribed, take the Valium if needed for worse symptoms of dizziness/vertigo, take the Zofran if needed for nausea. Follow-up with the ENT referral for additional evaluation and management. Return if you worsen including inability to walk, vomiting, severe headache, weakness on one side of your body, or any other concerning or worsening sympt oms. Prescriptions: Diazepam [Valium 5 mg Tablet] 5 mg PO TID PRN #12 tablet PRN Reason: Meclizine HCl [Antivert 25 mg Tablet] 25 mg PO TID PRN #21 tablet PRN Reason: Ondansetron [Zofran Odt 4 mg Tablet] 1 - 2 tab PO Q4H PRN #15 tab.rapdis PRN Reason: For Nausea/Vomiting Referrals: RILEY VOSS DO [ASSOCIATE] - 11/14/18
[2018-11-12] MEDS ORDERED: MECLIZINE HCL 25 MG TABLET PO ONE ×2 (14:34→21:16)
--- NOTE | 2018-11-12 15:11 | RADIOLOGY REPORT (SQ) ---
EXAM DESCRIPTION: CHEST 2 VIEWS COMPLETED DATE/TIME: 11/12/2018 2:59 pm REASON FOR STUDY: sob COMPARISON: None. EXAM PARAMETERS: NUMBER OF VIEWS: two views TECHNIQUE: Digital Frontal and Lateral radiographic views of the chest acquired. RADIATION DOSE: NA LIMITATIONS: none FINDINGS: LUNGS AND PLEURA: No opacities, masses or pneumothorax. No pleural effusion. MEDIASTINUM AND HILAR STRUCTURES: No masses or contour abnormalities. HEART AND VASCULAR STRUCTURES: Heart normal size. No evidence for failure. BONES: No acute findings. HARDWARE: Pacemaker. OTHER: No other significant finding. IMPRESSION: NO ACUTE RADIOGRAPHIC FINDING IN THE CHEST. TECHNICAL DOCUMENTATION: JOB ID: [id number] [employer]- All Rights Reserved Reading location - IP/workstation name: [email or web address]
--- NOTE | 2018-11-12 15:23 | RADIOLOGY REPORT (SQ) ---
EXAM DESCRIPTION: CT HEAD WITHOUT COMPLETED DATE/TIME: 11/12/2018 3:10 pm REASON FOR STUDY: dizziness COMPARISON: None. TECHNIQUE: Axial images acquired through the brain without intravenous contrast. Images reviewed wi th bone, brain and subdural windows. Additional sagittal and coronal reconstructions were generated. Images stored on PACS. All CT scanners at this facility use dose modulation, iterative reconstruction, and/or weight based d osing when appropriate to reduce radiation dose to as low as reasonably achievable (ALARA). [facility]: Dose Right [facility]: CareDose [facility]: Dose Right [facility]: Teradose 4D [facility]: [employer] RADIATION DOSE: CT Rad equipment meets quality standard of care and radiation dose reduction techniq ues were employed. CTDIvol: 53.2 mGy. DLP: 1150 mGy-cm.mGy. LIMITATIONS: None. FINDINGS: VENTRICLES: Prominent. CEREBRUM: No masses. No hemorrhage. No midline shift. Areas of low density in the white matter mos t likely due to chronic micro-vascular ischemic change. No evidence for acute infarction. CEREBELLUM: No masses. No hemorrhage. No alteration of density. No evidence for acute infarction. EXTRAAXIAL SPACES: Age-related involutional change. No fluid collections. No masses. ORBITS AND GLOBE: No intra- or extraconal masses. Normal contour of globe without masses. CALVARIUM: No fracture. PARANASAL SINUSES: No fluid or mucosal thickening. SOFT TISSUES: No mass or hematoma. OTHER: No other significant finding. IMPRESSION: CHRONIC CHANGES OF ATROPHY AND MICROVASCULAR ISCHEMIA. NO ACUTE PROCESS. EVIDENCE OF ACUTE STROKE: NO. TECHNICAL DOCUMENTATION: JOB ID: [id number] Quality ID # 436: Final reports with documentation of one or more dose reduction techniques (e.g., Au tomated exposure control, adjustment of the mA and/or kV according to patient size, use of iterative reconstruction technique) 2010 [employer]- All Rights Reserved Reading location - IP/workstation name: [email or web address]
[2018-11-12] MEDS ORDERED: DIPHENHYDRAMINE HCL 50 MG/ML VIAL IV ONE (17:45)
[2018-11-12] MEDS ORDERED: FAMOTIDINE INJ/PF 20 MG/2 ML SDV IV ONE (17:45)
[2018-11-12] MEDS ORDERED: METHYLPREDNISOLONE INJ 40 MG/1 ML SDV IV ONE (17:45)
[2018-11-12 19:30] VITALS: BP 154/82
[2018-11-12] MEDS ORDERED: SCOPOLAMINE HYDROBROMIDE 1.5 MG PATCH.TD72 TD ONE (20:13)
--- NOTE | 2018-11-12 20:17 | RADIOLOGY REPORT (SQ) ---
EXAM DESCRIPTION: CT HEAD ANGIOGRAPHY WITHOUT THEN WITH IV CONTRAST, CT NECK ANGIOGRAPHY WITHOUT THEN WITH IV CONTRAST COMPLETED DATE/TME: 11/12/2018 17:29 CLINICAL HISTORY: 83 years, Male, dizziness, difficulty ambulating COMPARISON: None. TECHNIQUE: CT head/neck angiography was performed following intravenous administration of contrast. Multiplanar reformatted images were provided. 3-D reformatted images were performed on an independent workstation (to include sagittal and coronal MIPS). This exam was performed according to our departmental dose optimization program which includes use of automated exposure control, adjustment of the mA and/or kV according to patient size and/or use of iterative reconstruction technique. Images stored on PACS. All CT scanners at this facility use dose modulation, iterative reconstruction, and/or weight based dosing when appropriate to reduce radiation dose to as low as reasonably achievable (ALARA). [facility]: Dose Right [facility]: CareDose [facility]: Dose Right [facility]: Teradose 4D [facility]: [employer] Stenoses were graded using NASCET criteria. LIMITATIONS: None. FINDINGS: The CTA portion of the examination is limited secondary to contrast bolus timing. Limited evaluation of the lung apices reveals no suspicious findings. Thyroid gland enhances symmetrically. The hypopharynx, oropharynx, and nasopharynx show no suspicious abnormality. The bilateral parotid and submandibular glands appear normal. Assessment of the brain parenchyma reveals mild periventricular and patchy subcortical white matter low attenuation. The ventricles and sulcal spaces are mildly enlarged. Visualized portions of the thoracic aortic arch demonstrate mild peripheral calcified atherosclerotic plaque extending into the origins of the great vessels. Right side: The right common carotid artery demonstrates mild peripheral calcified atherosclerotic plaque extending into the carotid bulb as well as into the proximal right ICA. This does not appear to result in any flow significant stenosis. The remaining cervical portions of the right ICA appear normal. Intracranially, the right ICA demonstrates mild peripheral calcified atherosclerotic plaque throughout the carotid cavernous segment extending into the ophthalmic segment without flow significant stenosis. The right MCA and KAMAR appear normal. Left side: The left common carotid artery opacifies with contrast normally. However, at the level of the carotid bulb, there is moderate peripheral calcified atherosclerotic plaque extending of the proximal left ICA. However, this does not appear to result in any flow significant stenosis. The remaining cervical portions of the left ICA opacify with contrast normally. Intracranially, there is mild peripheral calcified atherosclerotic plaque about the carotid cavernous segment extending into the ophthalmic segment without flow significant stenosis. The left MCA and KAMAR appear normal. Posterior circulation: Portions of the left vertebral artery (specifically both proximally and distally) poorly opacify with contrast secondary to technique and are thus incompletely assessed. However, there is no gross evidence of flow significant stenosis throughout the neck. The basilar artery and right posterior cerebral artery appear normal. The left posterior cerebral artery is not well-visualized beyond the distal P1 segment, and is possibly completely occluded. Major dural venous sinuses appear grossly opacify with contrast normally. Multilevel cervical spondylosis is noted, designated by multilevel intervertebral disc space narrowing, hypertrophic endplate spurring, and facet hypertrophy. IMPRESSION: Substantially limited examination secondary to inadequate contrast bolus timing and thus poor opacification of the arterial vasculature of the head and neck. This results in a poorly evaluation of the arterial structures of the head and neck. Absent opacification of the left posterior should artery beyond the P1 segment. It is uncertain whether this is related to the poor contrast bolus timing or occlusion though the former is favored. This could be confirmed with repeat CTA of the head or MRA of the head. Otherwise, no other foci of flow significant stenosis within the head or neck. Mild chronic microvascular ischemic change and generalized atrophy. TECHNICAL DOCUMENTATION: Quality ID # 436: Final reports with documentation of one or more dose reduction techniques (e.g., Automated exposure control, adjustment of the mA and/or kV according to patient size, use of iterative reconstruction technique) copyright 2011 [employer]- All Rights Reserved
[2018-11-12] MEDS ORDERED: DIAZEPAM 5 MG TABLET PO ONE (21:16)
--- NOTE | 2018-11-13 01:54 | EKG REPORT ---
SEVERITY:- ABNORMAL ECG - VENTRICULAR-PACED COMPLEXES IVCD, CONSIDER ATYPICAL RBBB : Confirmed by: Afshan Saeed MD 13-Nov-2018 01:54:01
== END 2018-11-12 23:21 | disposition home or self-care (01) ==
LOC: ER 10:47
DX: R42 Dizziness and giddiness (principal); J02.9 Acute pharyngitis, unspecified; R13.10 Dysphagia, unspecified; I10 Essential (primary) hypertension; E11.9 Type 2 diabetes mellitus without complications
CPT/HCPCS: 93005; 99284; 96374; 96375; 36415; 82550; 85025; 80053; 81001; 84484; 83880; 71046; 70450; 70496; 70498; 93010; A9270 ×2; J1200; J2920; S0028

== ENCOUNTER 2019-06-13 08:07 | Emergency (ER) | payer MEDICARE ==
[2019-06-13 09:15] LABS: ABSOLUTE EOSINOPHILS # (AUTO) 0.1 10^3/uL (0.0-0.6); ABSOLUTE LYMPHOCYTES (AUTO) 1.5 10^3/uL (0.5-4.7); ABSOLUTE MONOCYTES (AUTO) 0.5 10^3/uL (0.1-1.4); ABSOLUTE NEUT (AUTO) 4.9 10^3/uL (1.7-8.2); BASOPHILS % (AUTO) 0.5 % (0-2); HEMOGLOBIN 12.5 g/dL (13.5-17.0); MEAN CORPUSCULAR HEMOGLOBIN 31.8 pg (27.0-33.4); MEAN CORPUSCULAR HGB CONC 34.7 g/dL (32.0-36.0); MEAN CORPUSCULAR VOLUME 92 fl (80-97); PLATELET COUNT 183 10^3/uL (150-450); RED BLOOD COUNT 3.93 10^6/uL (4.35-5.55); RED CELL DISTRIBUTION WIDTH 14.2 % (11.5-14.0); SEGMENTED NEUTROPHILS % (AUTO) 69.5 % (42-78); TOTAL CELLS COUNTED % (AUTO) 100 %
--- NOTE | 2019-06-13 09:29 | ER Document Report ---
ED General - General Chief Complaint: Chest Pain Stated Complaint: BACK PAIN,SORE THROAT Time Seen by Provider: 06/13/19 09:09 Primary Care Provider: GUADALUPE GRIFFIN MD [Primary Care Provider] - Follow up as needed Notes: HPI: Patient is an 83-year-old male with constellation of complaints. He states around 2-1/2 weeks he was placing a 6 inch x 6 inch 8 foot long colon to the ground. He states the next day he started to feel some bilateral back pain. He states that that is been constant. No trauma or falls. He states last night he started to have some anterior chest discomfort that is pleuritic. He states some mild shortness of breath that is been present for many years. He denies any runny nose, congestion, fevers, calf pain or leg swelling. Patient has a second complaint that he states he has had a sore throat for on 15 months. He states it constantly hurts when he swallows. He states if he leans back slightly and takes a drink he starts to cough. Patient states he is seen multiple physicians even an endoscopy. He states he has not [facility] to [facility]. When asked about radiation he states it radiates from the anterior chest down to the abdomen. ROS: See HPI All other review of systems reviewed and otherwise negative Reviewed vital signs and nursing note as charted by RN. PHYSICAL EXAM: CONSTITUTIONAL: Alert and oriented and responds appropriately to questions. Well-appearing; well-nourished HEAD: Normocephalic; atraumatic EYES: PERRL; Conjunctivae clear, sclerae non-icteric ENT: Normal nose; no rhinorrhea; moist mucous membranes; pharynx without lesions noted NECK: Supple without meningismus; non-tender; no cervical lymphadenopathy, no masses CARD: Regular rate and rhythm; no murmurs; symmetric distal pulses RESP: Normal chest excursion without splinting or tachypnea; breath sounds clear and equal bilaterally; no wheezes, no rhonchi, no rales ABD/GI: Normal bowel sounds; non-distended; soft, non-tender; no palpable o rganomegaly or masses BACK: The back appears normal and is non-tender to palpation EXT: Normal ROM in all joints; non-tender to palpation; no edema SKIN: No acute lesions noted NEURO: CN 2-12 intact; 5/5 bilateral upper and lower extremity strength with sensation intact to light touch PSYCH: The patient's mood and manner are appropriate. Grooming and personal hygiene are appropriate. TRAVEL OUTSIDE OF THE [place] IN LAST 30 DAYS: No - Related Data Allergies/Adverse Reactions: No Known Allergies Allergy (Verified 06/13/19 08:24) Past Medical History - Social History Smoking Status: Former Smoker Chew tobacco use (# tins/day): No Frequency of alcohol use: None Drug Abuse: None Family History: Reviewed & Not Pertinent, Other Patient has suicidal ideation: No Patient has homicidal ideation: No - Past Medical History Cardiac Medical History: Reports: Hx Atrial Fibrillation, Hx Hypercholesterolemia, Hx Hypertension Denies: Hx Congestive Heart Failure, Hx Coronary Artery Disease, Hx Heart Attack, Hx Peripheral Vascular Disease, Hx Heart Murmur Pulmonary Medical History: Reports: Hx Pneumonia Denies: Hx Asthma, Hx Bronchitis, Hx COPD, Hx Tuberculosis Neurological Medical History: Denies: Hx Cerebrovascular Accident, Hx Seizures Endocrine Medical History: Reports: Hx Diabetes Mellitus Type 2. Denies: Hx Graves' Disease, Hx Hyperthyroidism, Hx Hypothyroidism Renal/ Medical History: Denies: Hx Peritoneal Dialysis GI Medical History: Reports: Hx Gastroesophageal Reflux Disease. Denies: Hx Hepatitis, Hx Hiatal Hernia, Hx Ulcer Musculoskeletal Medical History: Reports Hx Arthritis, Denies Hx Fibromyalgia, Denies Hx Muscular Dystrophy, Denies Hx Systemic Lupus Erythematosus Traumatic Medical History: Denies: Hx Fractures Infectious Medical History: Denies: Hx Hepatitis Past Surgical History: Reports: Hx Appendectomy, Hx Cardiac Catheterization - 2010, stents, Hx Cardiac Surgery - pacemaker, Hx Pacemaker, Hx Tonsillectomy. Denies: Hx Bowel Surgery, Hx Cholecystectomy, Hx Coronary Artery Bypass Graft, Hx Gastric Bypass Surgery, Hx Herniorrhaphy, Hx Open Heart Surgery - Immunizations Hx Diphtheria, Pertussis, Tetanus Vaccination: Yes Hx Pneumococcal Vaccination: 06/12/11 Physical Exam - Vital signs Vitals: Temp Pulse Resp BP Pulse Ox 97.7 F 71 16 152/74 H 100 06/13/19 08:14 06/13/19 08:14 06/13/19 08:14 06/13/19 08:14 06/13/19 08:14 Course - Re-evaluation Re-evalutation: 06/13/19 09:28 Given the above constellation of symptoms, with some chest discomfort radiating to the abdomen, with no calf pain or leg swelling, with vital signs as recorded, with complaints of a sore throat with difficulty swallowing for 15 months, I will obtain basic labs, cardiac labs, liver panel and lipase, TSH, and obtain a CT scan of the throat, chest abdomen and pelvis. I would like to evaluate for any obvious masses, cardiac abnormalities, liver lipase abnormalities, dissection, or obvious cancerous lesions. 06/13/19 10:52 EKG shows what appears to be a ventricular paced rhythm. Labs and cardiac panel including a liver panel and lipase as recorded. 06/13/19 11:39 Currently pain-free. No obvious signs of dissection. No obvious central thrombus present. Vital signs as recorded. Patient denies any pain at this time. EKG shows a pacemaker rhythm. Repeat troponin is pending. 06/13/19 13:15 Repeat troponin as recorded. Given the patient's age, pacemaker, with some chest pain, despite being atypical, I have suggested the patient and family admission. Patient states he has a cardiology appointment tomorrow. I explained to the patient that despite this I would like to admit given the possibility of an acute coronary event causing the patient's symptomatology. Patient states that he would like to go home. He does understand the risks and benefits of going home including possible permanent disability and . I did explain this to both he and his . Patient denies any pain at this time. Vital signs are stable. - Vital Signs Vital signs: Temp Pulse Resp BP Pulse Ox 97.7 F 71 18 139/69 H 98 06/13/19 08:14 06/13/19 08:14 06/13/19 12:01 06/13/19 12:01 06/13/19 12:01 - Laboratory Result Diagrams: 06/13/19 09:00 06/13/19 09:00 Laboratory results interpreted by me: 06/13/19 06/13/19 06/13/19 09:00 09:00 09:22 RBC 3.93 L Hgb 12.5 L Hct 36.0 L RDW 14.2 H BUN 22 H Est GFR (MDRD) Non-Af 55 L Glucose 177 H Alkaline Phosphatase 36 L Discharge - Discharge Clinical Impression: Precordial chest pain, Rib pain Condition: Fair Disposition: AGAINST MEDICAL ADVICE Additional Instructions: Come back at any time that he would like for further treatment and assessment. Return immediately with any return or worsening pain, fevers, or shortness of breath. Please make sure that you follow-up with your gym attendant as discussed. Referrals: GUADALUPE GRIFFIN MD [Primary Care Provider] - Follow up as needed
[2019-06-13 09:34] LABS: ANION GAP 8 (5-19); BLOOD UREA NITROGEN 22 mg/dL (7-20); CARBON DIOXIDE 26 mmol/L (22-30); CHLORIDE 105 mmol/L (98-107); GLUCOSE 177 mg/dL (75-110); POTASSIUM 4.2 mmol/L (3.6-5.0)
[2019-06-13 10:34] LABS: ALBUMIN 4.2 g/dL (3.5-5.0); ALKALINE PHOSPHATASE 36 U/L (38-126); ASPARTATE AMINO TRANSFERASE 33 U/L (17-59); BILIRUBIN,DIRECT 0.3 mg/dL (0.0-0.4); BILIRUBIN,TOTAL 0.6 mg/dL (0.2-1.3); TOTAL PROTEIN 7.4 g/dL (6.3-8.2)
--- NOTE | 2019-06-13 11:00 | RADIOLOGY REPORT (SQ) ---
EXAM DESCRIPTION: CT ABD/PELVIS WITH IV ONLY; CT CHEST WITH COMPLETED DATE/TIME: 06/13/2019 10:37 am REASON FOR STUDY: 10; chest pain with radiation to back and stomach COMPARISON: None. RENAL FUNCTION: GFR > 60. TECHNIQUE: CT scan of the chest performed using helical scanning technique with dynamic intravenous contrast injection. Images reviewed with lung, soft tissue and bone windows. Reconstructed coronal a nd sagittal MPR images reviewed. All images stored on PACS. CT scan of the abdomen and pelvis performed with intravenous and with oral contrastusing helical scan james technique with dynamic intravenous contrast injection. Images reviewed with lung, soft tissue a nd bone windows. Reconstructed coronal and sagittal MPR images reviewed. Delayed images for evaluat ion of the urinary system also acquired and evaluated. All images stored on PACS. All CT scanners at this facility use dose modulation, iterative reconstruction, and/or weight based d osing when appropriate to reduce radiation dose to as low as reasonably achievable (ALARA). [facility]: Dose Right [facility]: CareDose [facility]: Dose Right [facility]: Teradose 4D [facility]: [employer] RADIATION DOSE: . LIMITATIONS: None. FINDINGS: CHEST: LUNGS AND PLEURA: No opacities, nodules, masses. No pneumothorax. No effusions. HILAR AND MEDIASTINAL STRUCTURES: No mass. No enlarged nodes. Shotty nodes. No abnormal gas. Smal l hiatal hernia. HEART AND VASCULAR STRUCTURES: No pericardial effusion. Moderate to marked coronary calcification. Pacer artifact. No evidence of aortic aneurysm or dissection. No gross central pulmonary embolus. HARDWARE: As above. THYROID AND OTHER SOFT TISSUES: No masses. No adenopathy. BONES: No significant finding. OTHER: No other significant finding. ABDOMEN AND PELVIS: LIVER: No evidence of laceration or mass. Normal size. SPLEEN: Normal size. No focal lesions. PANCREAS: No masses. No significant calcifications. No adjacent inflammation or peripancreatic fluid collections. Pancreatic duct not dilated. GALLBLADDER: No identified stones by CT criteria. No inflammatory changes to suggest cholecystitis. ADRENAL GLANDS: No significant masses or asymmetry. RIGHT KIDNEY AND URETER: No solid masses. No significant calcification. No hydronephrosis or hydroure ter. LEFT KIDNEY AND URETER: No solid masses. No significant calcification. No hydronephrosis or hydrouret er. AORTA AND VESSELS: IV atherosclerosis. Distal aortic aneurysm measuring up to almost 5 cm. There is endovascular graft in place without gross endoleak suggested. No evidence of arterial occlusion all owing for heavy atherosclerotic plaque. No suggestion of dissection. No overt venous clot. RETROPERITONEUM: No retroperitoneal adenopathy, hemorrhage or masses. BOWEL AND PERITONEAL CAVITY: Extensive distal colonic diverticulosis. This includes throughout the s igmoid colon. Although focal inflammatory changes are not discretely seen, the extent of diverticulo sis is considerable and mild active diverticulitis is not entirely excluded. There are also consider able diverticula throughout the remainder of the large bowel. No mechanical bowel obstruction or asc ites or abnormal gas. APPENDIX: No suggestion of appendicitis. ABDOMINAL WALL: No masses. No hernias. PELVIS: No mass or free fluid. Normal bladder. BONES: No significant or acute findings. OTHER: No other significant finding. IMPRESSION: 1. No acute thoracic abnormality. Heavy coronary calcification. No aortic aneurysm or dissection or active lung infiltrate. 2. Endovascular repair of aortic aneurysm without endoleak grossly detected. No dissection. Heavy v ascular calcification. 3. Extensive diverticulosis. Although no active inflammatory changes are clearly identified, CT can sometimes mass active diverticulitis (particularly given the extensive diverticular present throughou t the colon). TECHNICAL DOCUMENTATION: JOB ID: [id number] Quality ID # [id number]: Final reports with documentation of one or more dose reduction techniques (e.g., Au tomated exposure control, adjustment of the mA and/or kV according to patient size, use of iterative reconstruction technique) 2010 [employer]- All Rights Reserved Reading location - IP/workstation name: [email or web address]
--- NOTE | 2019-06-13 11:06 | RADIOLOGY REPORT (SQ) ---
EXAM DESCRIPTION: CT SOFT TISSUE NECK WITH COMPLETED DATE/TIME: 06/13/2019 10:37 am REASON FOR STUDY: 10; chest pain with radiation to back and stomach COMPARISON: 11/12/2018 CTA neck TECHNIQUE: Post IV contrasted scanning from skull base through lung apices with review of bone, soft tissue and lung windows. Reconstructed coronal and sagittal MPR images reviewed. All images stored on PACS. All CT scanners at this facility use dose modulation, iterative reconstruction, and/or weight based d osing when appropriate to reduce radiation dose to as low as reasonably achievable (ALARA). [facility]: Dose Right [facility]: CareDose [facility]: Dose Right [facility]: Teradose 4D [facility]: [email or web address] CONTRAST TYPE AND DOSE: contrast/concentration: Isovue 350.00 mg/ml; Total Contrast Delivered: 99.0 ml; Total Saline Delivered: 56.1 ml RENAL FUNCTION: GFR > 60. RADIATION DOSE: CT Rad equipment meets quality standard of care and radiation dose reduction techniq ues were employed. CTDIvol: 18.1 - 26.9 mGy. DLP: 4483 mGy-cm. . LIMITATIONS: The contrast bolus in the neck vessels is limited. This is likely due to performance o f full body scan (additional separately dictated chest and abdominopelvic studies) and potentially re lated to some cardiac diminished output. As such this is almost a non contrasted evaluation. FINDINGS: SKULL BASE: Intact. MAJOR SALIVARY GLANDS: No solid or cystic masses. No inflammatory changes. LYMPHADENOPATHY: No adenopathy. MUCOSAL MASSES OR ASYMMETRY: No mucosal masses or asymmetry. LARYNX/CORDS: No abnormal findings. VASCULAR STRUCTURES: Incompletely evaluated. Atherosclerotic changes. Limited assessment for dissec tion or occlusion. LUNG APICES: See separate dictation. BONES: Osteopenia and spondylosis. No gross fracture or worrisome bone lesion. THYROID: Normal size. No masses. PARANASAL SINUSES: Clear. OTHER: No other significant finding. IMPRESSION: 1. Limited study, as above. Contrast bolus is suboptimal. 2. No acute or suspicious findings otherwise detected as assessed. TECHNICAL DOCUMENTATION: JOB ID: [id number] Quality ID # [id number]: Final reports with documentation of one or more dose reduction techniques (e.g., Au tomated exposure control, adjustment of the mA and/or kV according to patient size, use of iterative reconstruction technique) 2010 [employer]- All Rights Reserved Reading location - IP/workstation name: [email or web address]
--- NOTE | 2019-06-13 12:19 | EKG REPORT ---
SEVERITY:- ABNORMAL ECG - VENTRICULAR-PACED RHYTHM : Confirmed by: Rd Javed MD 13-Jun-2019 12:18:51
[2019-06-13 13:25] VITALS: BP 129/59
== END 2019-06-13 13:31 | disposition left against medical advice (07) ==
LOC: ER 08:07
DX: R07.2 Precordial pain (principal); R07.81 Pleurodynia; M54.9 Dorsalgia, unspecified; R06.02 Shortness of breath; J02.9 Acute pharyngitis, unspecified; R13.10 Dysphagia, unspecified; I10 Essential (primary) hypertension; E11.9 Type 2 diabetes mellitus without complications; Z87.891 Personal history of nicotine dependence; Z87.01 Personal history of pneumonia (recurrent); Z95.5 Presence of coronary angioplasty implant and graft; Z95.0 Presence of cardiac pacemaker; Z53.20 Procedure and treatment not carried out because of patient's decision for unspecified reasons
CPT/HCPCS: 36415; 70491; 71260; 74177; 80048; 80076; 83690; 84443; 84484; 85025; 93005; 93010; 99285